=== PATIENT | male | born 1940 | race Caucasian/White ===

== ENCOUNTER 2020-02-25 12:15 | Outpatient (CLI) | payer MEDICARE, OTHER ==
--- NOTE | 2020-02-25 15:20 | RAD ---
PA AND LATERAL VIEWS OF THE CHEST: 02/25/20 HISTORY: Dyspnea. FINDINGS: The heart size is normal. The aorta is tortuous. The lungs are expanded without focal areas of consol idation, pneumothoraces or pleural effusions. There are degenerative changes in the spine. IMPRESSION: No acute process. POS: [facility]
== END 2020-02-25 12:16 | disposition home or self-care (01) ==
LOC: BICRAD 12:15
PROVIDERS: ATTEND Internal Medicine Critical Care Medicine
DX: R06.00 Dyspnea, unspecified (principal)
CPT/HCPCS: 71046